=== PATIENT | male | born 1975 | race Caucasian/White ===

== ENCOUNTER 2016-10-24 15:47 | Emergency (ER) | payer OTHER ==
[2016-10-24 16:08] VITALS: RESP 16; TEMP 97
[2016-10-24] MEDS ORDERED: HEPATITIS B VACCINE(ADULT) 20 MCG/ML SUS IM ONE ×2 (16:14→16:24)
[2016-10-24] MEDS ORDERED: TDAP VACCINE 0.5 ML SUS IM ONE ×2 (16:25→16:27)
[2016-10-24 16:51] VITALS: BP 107/68; PULSE 68; O2SAT 99
== END 2016-10-24 16:47 | disposition home or self-care (01) | DRG 951 ==
LOC: ED 15:47
DX: Z77.21 Contact with and (suspected) exposure to potentially hazardous body fluids (principal); S80.811A Abrasion, right lower leg, initial encounter
CPT/HCPCS: 36415; 84460; 90471; 90715; 90746; 99282; 99283

== ENCOUNTER 2018-04-24 09:26 | Emergency (ER) | payer OTHER ==
[2018-04-24 09:35] VITALS: RESP 20; TEMP 97.6
[2018-04-24] MEDS ORDERED: LIDOCAINE HCL 2% MPF 10 ML SOL SC ONE (10:19)
[2018-04-24] MEDS ORDERED: LIDOCAINE HCL 2% MPF 10 ML SOL ONE (10:20)
[2018-04-24 11:22] VITALS: BP 129/87; PULSE 74; O2SAT 96
== END 2018-04-24 11:10 | disposition home or self-care (01) | DRG 605 ==
LOC: ED 09:26
DX: S01.01XA Laceration without foreign body of scalp, initial encounter (principal); S16.1XXA Strain of muscle, fascia and tendon at neck level, initial encounter; Y35.91XA Legal intervention, means unspecified, law enforcement official injured, initial encounter
CPT/HCPCS: 12001; 72040; 99283; 99284